=== PATIENT | female | born 1985 | race Two or more races ===

== ENCOUNTER 2019-03-29 10:14 | Emergency (ER) | payer OTHER | END 2019-03-29 12:16 | disposition home or self-care (01) | LOC: JERFT 10:14 ==

== ENCOUNTER 2019-08-30 19:15 | Emergency (ER) | payer OTHER ==
--- NOTE | 2019-08-30 19:35 | PDOC ---
Rapid Medical Evaluation Time Seen by Provider: 08/30/19 19:34 Medical Evaluation: Allergies Allergy/AdvReac Type Severity Reaction Status Date / Time No Known Allergies Allergy Verified 03/29/19 10:42 08/30/19 19:34 I have performed a brief in-person evaluation of this patient. The patient presents with a chief complaint of: 7 weeks , bleeding Pertinent physical exam findings:stable and in NAD, non-focal I have ordered the following:labs The patient will proceed to the ED for further evaluation.
[2019-08-30 19:37] VITALS: BP 111/70; PULSE 68; TEMP 98.5; BMI 23.8
[2019-08-30 20:24] LABS: BASO % 1.1 % (0-2.0); EOS % 4.8 % (0-4.5); HEMATOCRIT 38.4 % (32.4-45.2); HEMOGLOBIN 12.6 GM/dL (10.7-15.3); LYMPH % 25.8 % (8-40); MCH 29.8 pg (25.7-33.7); MEAN CELL VOLUME 90.4 fl (80-96); MEAN PLT VOLUME 10.1 fl (7.5-11.1); MONO % 7.5 % (3.8-10.2); NEUT % 60.8 % (42.8-82.8); PLATELET COUNT 278 K/MM3 (134-434); RBC 4.24 M/mm3 (3.60-5.2); RDW 13.5 % (11.6-15.6); WHITE BLOOD COUNT 12.3 K/mm3 (4.0-10.0)
--- NOTE | 2019-08-30 20:25 | PDOC ---
History of Present Illness - General Chief Complaint: Vaginal Bleeding Stated Complaint: 7 WEEKS Time Seen by Provider: 08/30/19 19:34 - History of Present Illness Initial Comments: 08/30/19 20:35 33F L1, 7 weeks LMP July 06, presents to the ED with vaginal spotting for the past 3 days, only found when she wipes, and lower abdominal cramping. First appointment with OBGYN in September in the [place] ([facility] Denies fever, chills, n/v/d, dysuria. Past History - Past Medical History Allergies/Adverse Reactions: Allergies Allergy/AdvReac Type Severity Reaction Status Date / Time No Known Allergies Allergy Verified 03/29/19 10:42 Home Medications: Ambulatory Orders Dextromethorphan Hb/Doxylamine [Robitussin Nighttime Cough Dm] 118 ml PO QSHIFT 1 Days liquid 03/29/19 COPD: No - Reproductive History Is Patient Now?: Yes (#): 2 Para: 1 - Immunization History Immunization Up to Date: Yes - Psycho Social/Smoking Cessation Hx Smoking History: Never smoked Hx Alcohol Use: No Drug/Substance Use Hx: No Substance Use Type: None Hx Substance Use Treatment: No Review of Systems - Review of Systems Able to Perform ROS?: Yes Is the patient limited Brazilian proficient: No Constitutional: No: Symptoms Reported HEENTM: No: Symptoms Reported Respiratory: No: Symptoms reported Cardiac (ROS): No: Symptoms Reported ABD/GI: No: Symptoms Reported : Yes: See HPI Musculoskeletal: No: Symptoms Reported Integumentary: No: Symptoms Reported Neurological: No: Symptoms reported All Other Systems: Reviewed and Negative *Physical Exam - Vital Signs Last Vital Signs Temp Pulse Resp BP Pulse Ox 98.5 F 68 19 111/70 98 08/30/19 19:34 08/30/19 19:34 08/30/19 19:34 08/30/19 19:34 08/30/19 19:34 - Physical Exam General Appearance: Yes: Nourished, Appropriately Dressed. No: Apparent Distress HEENT: positive: EOMI, ANA, Normal ENT Inspection Respiratory/Chest: positive: Lungs Clear, Normal Breath Sounds. negative: Chest Tender, Respiratory Distress Cardiovascular: positive: Regular Rhythm, Regular Rate, S1, S2 Female Pelvic Exam: positive: normal external exam, cervical os closed, normal adnexa, normal size ovaries, discharge (clotted blood from os). negative: CMT Gastrointestinal/Abdominal: positive: Normal Bowel Sounds, Flat, Soft. negative : Tender Musculoskeletal: positive: Normal Inspection. negative: CVA Tenderness Extremity: positive: Normal Capillary Refill, Normal Inspection, Normal Range of Motion Integumentary: positive: Normal Color, Dry, Warm Neurologic: positive: Fully Oriented, Alert, Normal Mood/Affect, Normal Response , Motor Strength 02/18 ED Treatment Course - LABORATORY CBC & Chemistry Diagram: 08/30/19 20:06 08/30/19 20:06 - RADIOLOGY Radiology Studies Ordered: Category Date Time Status <14WKS US [US] Stat Ultrasound 08/30/19 20:24 Ordered Medical Decision Making - Medical Decision Making 08/30/19 20:48 33F L1, 7 weeks LMP July 06, presents to the ED with vaginal spotting for the past 3 days, only found when she wipes, and lower abdominal cramping. Will get beta-HCG, TVUS to confirm IUP. Will probably send home and repeat beta-hcg in 2 days. 08/30/19 22:10 TVUS: The exam was performed utilizing transvaginal scanning. No prior imaging studies of this are available at this facility for direct comparison. No intrauterine gestation or gestational sac is identified - ? early , ectopic , recent miscarriage. Correlate with beta hCG levels. Consider close follow-up sonography. The endometrium is slightly thickened measuring 0.7 cm. No obvious uterine pathology is noted. A 1.2 cm cervical nabothian cyst is seen. A 2 cm left ovarian cyst is seen containing intraluminal debris/blood. The right ovary appears unremarkable demonstrating several subcentimeter follicles. No Doppler evidence of ovarian torsion, sensitivity 70%. There is no free intraperitoneal fluid within the visualized lower pelvis. No gross adnexal pathology is identified. Follow up in two days to check progression of beta-HCG Likely miscarriage vs early . Discharge - Discharge Information Problems reviewed: Yes Clinical Impression/Diagnosis: Vaginal bleeding in patient at less than 20 weeks gestation, Threatened Condition: Stable Disposition: HOME - Admission No - Follow up/Referral - Patient Discharge Instructions Patient Printed Discharge Instructions: DI for Threatened Additional Instructions: Come back in two days to check your beta-HCG level and compare them to today's ( 1026) Come back until then for any new, worsening or concerning symptom. - Post Discharge Activity
[2019-08-30 20:51] LABS: ALBUMIN 3.8 g/dl (3.4-5.0); BILIRUBIN,TOTAL 0.4 mg/dL (0.2-1); BLOOD UREA NITROGEN 14.1 mg/dL (7-18); CALCIUM 8.6 mg/dL (8.5-10.1); CREATININE 0.7 mg/dL (0.55-1.3); POTASSIUM 4.1 mmol/L (3.5-5.1)
--- NOTE | 2019-08-30 21:17 | PDOC ---
Documentation entered by Ivelisse Patterosn SCRIBE, acting as scribe for Magda Lilly MD. Magda Lilly MD: This documentation has been prepared by the Yesenia gonzales Brenda, SCRIBE, under my direction and personally reviewed by me in its entirety. I confirm that the documentation accurately reflects all work, treatment, procedures, and medical decision making performed by me. Attending Attestation - Resident Resident Name: Pierce Diaz - ED Attending Attestation I have performed the following: I have examined & evaluated the patient, The case was reviewed & discussed with the resident, I agree w/resident's findings & plan, Exceptions are as noted - HPI HPI: 08/30/19 20:27 33 yo LMP sept who presents with vaginal spotting x 3 days Pt not saturating any pads, she notes bleeding only when she wipes Pt has lower abdominal cramping. Denies fever, chills, n/v/d, dysuria, hematuria. - Physicial Exam PE: 08/30/19 20:28 GENERAL: The patient is in no acute distress. ENT: Moist mucous membranes. NECK: Normal range of motion, supple LUNGS: Breath sounds equal, clear to auscultation bilaterally. No wheezes, and no crackles. HEART:Regular rate and rhythm, normal S1 and S2 without murmur, rub or gallop. ABDOMEN: Soft, mild lower abdominal tenderness to palpation PELVIC: per Dr. diaz EXTREMITIES: Normal range of motion, no edema. NEUROLOGICAL: Cranial nerves II through XII grossly intact. Normal speech. No focal neurological deficits. SKIN: Warm, Dry, normal turgor, no rashes or lesions noted. 08/30/19 21:16 - Medical Decision Making Pt is presenting with a complaint of vaginal bleeding and abdominal pain Differential includes: Spontaneous , ruptured hemorrhagic ovarian cyst, ectopic , subchorionic hemorrhage 08/30/19 20:28 Laboratory Tests 08/30/19 20:06 WBC 12.3 H Hgb 12.6 Hct 38.4 Plt Count 278 08/30/19 21:16 Laboratory Tests 08/30/19 20:06 Blood Type O POSITIVE 08/30/19 22:07 Laboratory Tests 08/30/19 08/30/19 20:06 20:06 BUN 14.1 Creatinine 0.7 Beta HCG, Quant 1026.0 08/30/19 22:07 Ultrasound: No intrauterine gestation or gestational sac identified Endometrium slightly thickened measuring 0.7 cm Left ovarian cyst measuring 2 cm containing intraluminal debris/blood No free fluid Clinical impression: Threatened ab vs. inevitable ab vs. ectopic Pt asked to return to the ER for repeat BHCG and possible US
== END 2019-08-30 22:18 | disposition home or self-care (01) ==
LOC: JER 19:15
DX: O26.891 Other specified pregnancy related conditions, first trimester (principal); O20.8 Other hemorrhage in early pregnancy; O20.0 Threatened abortion; O34.81 Maternal care for other abnormalities of pelvic organs, first trimester; N83.292 Other ovarian cyst, left side; Z3A.01 Less than 8 weeks gestation of pregnancy
CPT/HCPCS: 36415; 76801-TC; 80053; 84702; 85025; 86850; 86900; 86901; 99282-25